=== PATIENT | male | born 1975 | race Two or more races ===

== ENCOUNTER 2024-07-13 14:43 | Emergency (ER) | payer OTHER ==
[~2024-07-13] VITALS: Ht 172.7 cm; Wt 136.1 kg
[2024-07-13] MEDS ORDERED: GLUCOTROL XL5 MG (15:31)
[2024-07-13] MEDS ORDERED: GLUMETZA1000 MG (15:31)
[2024-07-13] MEDS ORDERED: COZAAR50 MG (15:31)
[2024-07-13] MEDS ORDERED: KETOROLAC TROMETHAMINE 60 MG VIAL IM ONE ×2 (16:28→16:30)
[2024-07-13 16:49] LABS: HEMATOCRIT 45.2 % (39.0-48.0); HEMOGLOBIN 15.7 g/dL (13-16.00); MEAN CORPUSCULAR HGB CONC 34.8 g/dl (32.0-36.0); PLATELET COUNT 283 K/uL (150-450); RED BLOOD COUNT 5.08 M/uL (4.00-6.00); RED CELL DISTRIBUTION WIDTH 13.4 % (11.5-14.5)
[2024-07-13 17:24] LABS: BILIRUBIN TOTAL 0.36 mg/dL (0.3-1.2); CALCIUM 9.7 mg/dL (8.5-10.1); CREATININE SERUM 0.78 mg/dL (0.70-1.30); GFR 105.79; GLOBULINA 4.1 G/DL (2.4-3.5); POTASSIUM 4.4 mEq/L (3.5-5.1); TOTAL PROTEIN 8.1 gm/dL (6.4-8.2)
== END 2024-07-13 21:47 | disposition home or self-care (01) ==
LOC: ER 14:45
PROVIDERS: General Practice
DX: R10.11 Right upper quadrant pain (principal)